=== PATIENT | female | born 1960 | race Caucasian/White ===

== ENCOUNTER 2016-08-16 09:00 | Day surgery (SDC) | payer MEDICAID ==
[2016-08-16] MEDS ORDERED: BUPIVACAINE 0.25% 10 ML SDV ONE (09:39)
[2016-08-16] MEDS ORDERED: fentaNYL 100 MCG/2 ML INJ ONE (09:39)
[2016-08-16] MEDS ORDERED: TRIAMCINOLONE ACETONIDE 40 MG/ML VIAL ONE (09:39)
[2016-08-16] MEDS ORDERED: IOPAMIDOL (ISOVUE-M 200) 20 ML VIAL IV ONE (09:39)
[2016-08-16] MEDS ORDERED: DEXAMETHASONE 10 MG/ML VIAL ONE (09:39)
[2016-08-16] MEDS ORDERED: NA BICARBONATE 50 MEQ/50 ML VIAL ONE (09:39)
[2016-08-16] MEDS ORDERED: MIDAZOLAM 2 MG/2 ML VIAL ONE ×2 (09:39)
[2016-08-16] MEDS ORDERED: LIDOCAINE 1% 30 ML SDV ONE (09:40)
--- NOTE | 2016-08-16 14:42 | DX ---
Fluoroscopy for interlaminar injection cervicothoracic junction History: Fluoroscopy requested for interlaminar injection. Findings: Fluoroscopy time: 0.5 minutes, Estimated dose: 8.95 mGy Two digital images were saved demonstrate needle directed toward the interlaminar space at C7-T1 with contrast tracking in the epidural space. Impression: Fluoroscopy provided for interlaminar injection.
--- NOTE | 2016-08-21 17:19 | GPN ---
[f rep st] PROCEDURE NOTE DATE OF PROCEDURE: 08/16/2016 HISTORY OF PRESENT ILLNESS: The patient presents for followup and possible repeat cervical epidural steroid injection. Her last such injection done 01/26/2016, provided excellent for 3 months, with so me relief persisting to this date. She is not taking any blood thinners or antibiotics, and denies a llergies to shellfish, latex, contrast dye, and iodine. She denies . PROCEDURE: C7-T1 interlaminar epidural steroid injection. DIAGNOSIS: Cervical radiculopathy. SITE: Upper back. PROVIDER: Charlotte Valdivia MD. ANESTHESIA: Local with Versed 4 mg and fentanyl 50 mcg IV. COMPLICATIONS: None. ESTIMATED BLOOD LOSS: Minimal. PREPROCEDURE CONSENT: The preprocedure consent was obtained after the risks, benefits, and alternati ves of the procedure were explained to the patient. The risks include, but are not limited to, nerve injury, spinal cord injury, paralysis, muscle injury, infection, bleeding, increased pain, , an d any other unforeseen consequences. The patient agreed and signed the consent for the procedure. PROCEDURE VERIFICATION AND TIMEOUT: Verbal verification of patient site and procedure was done. All present were in agreement. Please see nursing notes for time of timeout. DESCRIPTION OF PROCEDURE: The patient was placed in a prone position. Standard monitors were put in place. Under fluoroscopic guidance, the C7-T1 interspace was identified. The skin overlying the ta rget area was prepped and draped in a sterile fashion with ChloraPrep and a fenestrated drape. Then, 2 mL of 1% lidocaine was injected subcutaneously over the target location. After local adequate erika lgesia was obtained, an 18-gauge 3-1/2-inch Tuohy needle was advanced by a loss of resistance techniq ue into the epidural space. The needle position was confirmed to be correct with biplanar fluoroscop y. After a negative aspiration for blood and cerebrospinal fluid, 0.5 mL of nonionic contrast dye wa s injected. Good flow of dye was noted in the epidural space. Then, 6 mL of a solution containing 1 5 mg dexamethasone and preservative-free normal saline was injected in 1 mL increments with negative aspiration in between, and no pain or paresthesia upon injection. The needle was re-styletted, and r emoved. Loss of resistance was obtained at 7 cm depth. The patient tolerated the procedure well, and was monitored for 30 more minutes with no apparent comp lications, and was discharged home in good condition, with a ride. She experienced no side effects f rom sedation, and was instructed not to drive, operate heavy machinery, or make any life altering dec isions today. She was instructed to call our clinic with nonurgent concerns or 911 in an emergency. In particular, she was taught that new weakness or numbness, changes in bowel or bladder control, fe celine and swelling or redness over the injection site are all urgent concerns that would warrant callin g 911 or going to an emergency care facility. She verbalized understanding, and was discharged home in good condition with post procedure instructions and a ride. ASSESSMENT: C7-T1 interlaminar epidural steroid injection done today without complications. The pat ient will return for followup, and we will consider repeating the injection in no less than 3 months' time. /[id number]/MODL
== END 2016-08-16 11:08 | disposition home or self-care (01) ==
LOC: FSGY 09:00
PROVIDERS: ATTEND Anesthesiology
PROC: 3E0S3BZ Introduction of Anesthetic Agent into Epidural Space, Percutaneous Approach (ICD-10-PCS; 2016-08-16)
PROC: 3E0S33Z Introduction of Anti-inflammatory into Epidural Space, Percutaneous Approach (ICD-10-PCS; principal; 2016-08-16 10:00)
DX: M54.12 Radiculopathy, cervical region (principal); M54.2 Cervicalgia; M54.9 Dorsalgia, unspecified; G89.29 Other chronic pain; M25.561 Pain in right knee; M25.562 Pain in left knee; R51 Headache; M19.90 Unspecified osteoarthritis, unspecified site; M25.50 Pain in unspecified joint; F41.9 Anxiety disorder, unspecified; Z87.891 Personal history of nicotine dependence
CPT/HCPCS: J2250; J3010; J3301; Q9966

== ENCOUNTER → 2017-06-04 | Outpatient (CLI) | payer MEDICAID | LOC: FIMAGING 13:51 | PROVIDERS: ATTEND Registered Nurse | DX: M47.22 Other spondylosis with radiculopathy, cervical region (principal); M50.10 Cervical disc disorder with radiculopathy, unspecified cervical region ==

== ENCOUNTER → 2017-07-31 | Outpatient (CLI) | payer MEDICAID | LOC: FIMAGING 16:31 | PROVIDERS: ATTEND Neurological Surgery | DX: M50.322 Other cervical disc degeneration at C5-C6 level (principal); M50.323 Other cervical disc degeneration at C6-C7 level; G56.01 Carpal tunnel syndrome, right upper limb; G56.02 Carpal tunnel syndrome, left upper limb ==

== ENCOUNTER → 2018-02-22 | Outpatient (CLI) | payer MEDICAID, OTHER | LOC: FIMAGING 16:02 | PROVIDERS: ATTEND Clinical Nurse Specialist | DX: M51.27 Other intervertebral disc displacement, lumbosacral region (principal); M51.26 Other intervertebral disc displacement, lumbar region; M48.07 Spinal stenosis, lumbosacral region; G54.4 Lumbosacral root disorders, not elsewhere classified ==

== ENCOUNTER 2018-03-11 13:07 | Day surgery (SDC) | payer OTHER ==
[2018-03-11] MEDS ORDERED: MIDAZOLAM 2 MG/2 ML VIAL IVP PRN (13:14)
[2018-03-11] MEDS ORDERED: NALOXONE HCL 0.4 MG/ML INJ IVP PRN (13:14)
[2018-03-11] MEDS ORDERED: fentaNYL 100 MCG/2 ML INJ IVP PRN (13:14)
[2018-03-11] MEDS ORDERED: FLUMAZENIL 0.5 MG/5 ML MDV IVP PRN (13:14)
[2018-03-11] MEDS ORDERED: NS 1,000 ML IV SCH (13:15)
[2018-03-11] MEDS ORDERED: MIDAZOLAM 2 MG/2 ML VIAL ONE (13:17)
[2018-03-11] MEDS ORDERED: NALOXONE HCL 0.4 MG/ML INJ ONE (13:17)
[2018-03-11] MEDS ORDERED: FLUMAZENIL 0.5 MG/5 ML MDV IVP ONE (13:17)
[2018-03-11] MEDS ORDERED: fentaNYL 100 MCG/2 ML INJ ONE (13:17)
[2018-03-11] MEDS ORDERED: TRIAMCINOLONE ACETONIDE 200 MG/5 ML MDV IM ONE (14:46)
[2018-03-11] MEDS ORDERED: IOPAMIDOL (ISOVUE-M 300) 15 ML VIAL ONE (14:46)
--- NOTE | 2018-03-11 14:48 | PDGENHP ---
History & Physical Chief Complaint: LBP History of Present Illness: PAIN GOES FROM LOWER BACK TO RT LEG, SOMETIMES DOWN FOOT. Pertinent Past, Social, Family History: s/p cervical anand, rt total knee replacement, gastric bypass, cholecystectomy, bilateral carpal tunnel, c/s, tonsilecomy. Relevant Physical Exam: R>L buttock and thigh pain. Cardiorespiratory Assessment: rrr, cta
--- NOTE | 2018-03-11 14:49 | PDPROPOC ---
Sedation Plan of Care Sedation Plan of Care: vital signs stable, mental status noted, patient educated of risks, benefits, alternatives, patient can tolerate sedation ASA Classification: ASA 2 Planned drugs: fentanyl, midazolam Mallampati Score: Class 2 Mallampati Reference Image: Patient passed 3-3-2 rule?: Yes
[2018-03-11 17:02] VITALS: BP 108/73
--- NOTE | 2018-03-11 17:12 | PDRADPN ---
Radiology Procedure Note Date of Procedure: 03/11/18 Radiologist: Julisa Wray Anesthesia: IV Sedation Pre-op Diagnosis: back pain Post-op Diagnosis: same Indication: severe pain Procedure: L5-S1 anand Inf/Abcess present in the surg proc area at time of surgery?: No
[2018-03-11] MEDS ORDERED: ONDANSETRON 4 MG/2 ML VIAL IVP PRN (17:13)
== END 2018-03-11 16:47 | disposition home or self-care (01) ==
LOC: FIMAGING 13:07
PROVIDERS: ATTEND Clinical Nurse Specialist
PROC: 3E0S3BZ Introduction of Anesthetic Agent into Epidural Space, Percutaneous Approach (ICD-10-PCS; principal; 2018-03-11 15:21)
PROC: 3E0S33Z Introduction of Anti-inflammatory into Epidural Space, Percutaneous Approach (ICD-10-PCS; principal; 2018-03-11 15:21)
DX: M51.26 Other intervertebral disc displacement, lumbar region (principal)
CPT/HCPCS: J2250; J2310; J3010; J3301; Q9967

== ENCOUNTER 2018-04-02 | Observation (INO) | payer OTHER | END 2018-04-03 14:56 | disposition home or self-care (01) | PROVIDERS: ADMIT Internal Medicine | PROC: 0GB33ZX Excision of Right Adrenal Gland, Percutaneous Approach, Diagnostic (ICD-10-PCS; principal; 2018-04-02) | PROC: B41B1ZZ Fluoroscopy of Other Intra-Abdominal Arteries using Low Osmolar Contrast (ICD-10-PCS; 2018-04-02) | PROC: 04L03DZ Occlusion of Abdominal Aorta with Intraluminal Device, Percutaneous Approach (ICD-10-PCS; 2018-04-02) | PROC: B4161ZZ Fluoroscopy of Right Renal Artery using Low Osmolar Contrast (ICD-10-PCS; 2018-04-02) | PROC: 04L93DZ Occlusion of Right Renal Artery with Intraluminal Device, Percutaneous Approach (ICD-10-PCS; 2018-04-02) | DX: E27.9 Disorder of adrenal gland, unspecified (principal); E89.810 Postprocedural hemorrhage of an endocrine system organ or structure following an endocrine system procedure; K66.1 Hemoperitoneum | CPT/HCPCS: 36245; 36246; 36251; 37244; 49180; 71045; 74175; 77012; 99152; 99153; C1760; C1769; G0378; G0379; J1170; J2250; J2270; J2405; J3010; Q9967; J2310 ==

== ENCOUNTER → 2018-05-05 | Outpatient (CLI) | payer OTHER | LOC: FIMAGING 08:55 | PROVIDERS: ATTEND Nurse Practitioner Family | DX: S72.435A Nondisplaced fracture of medial condyle of left femur, initial encounter for closed fracture (principal); M25.462 Effusion, left knee; M22.42 Chondromalacia patellae, left knee ==

== ENCOUNTER → 2018-05-24 | Outpatient (CLI) | payer OTHER | LOC: FIMAGING 14:54 | PROVIDERS: ATTEND Physician Assistant | DX: M79.662 Pain in left lower leg (principal) ==

== ENCOUNTER 2018-09-22 11:04 | Emergency (ER) | payer OTHER ==
--- NOTE | 2018-09-22 12:03 | EDPHY ---
H & P Time Seen by Provider: 09/22/18 12:02 HPI/ROS: CHIEF COMPLAINT: Neck and left wrist pain HISTORY OF PRESENT ILLNESS: The patient slipped on ice as her trailer 2 days ago on September 20 and fell hitting her face on a stump. She presents with continued pain in the right side of her neck and her left wrist. Worse with movement or palpation, not associated with weakness or numbness in extremities. Moderate, does have chronic pain and has a pain management plan through her provider. Denies double vision or visual symptoms. Denies chest or abdominal pain. Denies headache or vomiting. REVIEW OF SYSTEMS: Eye: No double vision ENT: no sore throat Cardiac: no chest pain or syncope Pulmonary: no cough or SOB Abdomen: no vomiting, diarrhea, abdominal pain Musculoskeletal: HPI Skin: Bruising around the left eye Neuro: no headache Constitutional: no fever : No hematuria A comprehensive 10 point review of systems is otherwise negative aside from elements mentioned in the history of present illness. PAST MEDICAL HISTORY: Hypertension and sleep apnea, diabetes, depression, peripheral lymphedema. Chronic pain. Social history: Here with her daughter. General Appearance: Alert and conversant, cooperative. Eyes: No scleral icterus. Pupils equal reactive extraocular motion intact no hyphema. ENT, Mouth: Normal mucous membranes. No hemotympanum. No bruising around the eyes or behind the ears. Respiratory: Normal respiratory effort, breath sounds equal, lungs are clear to auscultation. Cardiovascular: Regular rate and rhythm. Gastrointestinal: Abdomen is soft and non tender. Neurological: Alert, face symmetric, normal motor and sensory in extremities. Skin: Bruising around the left eye. Musculoskeletal: Midline cervical spine pain on palpation but no thoracic or lumbar spine tenderness. No extremity point tenderness except for left distal radius. Psychiatric: Not agitated. Emergency Department course/MDM: Does not have red flags to suggest high risk for intracranial bleed subdural or epidural. Has bruising around her left orbit but no headache, really only left wrist and neck pain at this time. Cannot clear by nexus, CT cervical spine discussed and consented. Procedure: Splint placement. A left forearm Ortho Glass sugar-tong splint was applied. After application of the splint I returned and re-examined the patient. The splint was adequately immobilizing the joint and distal to the splint the patient's circulation and sensation was intact. 1308: CT cervical spine negative per Dr. Dsouza. Smoking Status: Former smoker Constitutional: Initial Vital Signs Temperature (C) 36.8 C 09/22/18 11:11 Heart Rate 71 09/22/18 11:11 Respiratory Rate 16 09/22/18 11:11 Blood Pressure 185/99 H 09/22/18 11:11 O2 Sat (%) 96 09/22/18 11:11 O2 Delivery Mode Room Air Allergies/Adverse Reactions: No Known Allergies Allergy (Verified 09/22/18 11:10) Home Medications: Medication Instructions Recorded Amphet Asp and D/Amphet [Adderall 10 mg PO BID@09,13 04/02/18 20 mg (*)] Diclofenac Sodium 1% [Voltaren Gel 1 jayy TP QID PRN 04/02/18 (*)] FLUoxetine [Prozac 20 MG (*)] 60 mg PO DAILY 04/02/18 Lisinopril [Zestril 20 mg (*)] 20 mg PO DAILY 04/02/18 Omeprazole 20 mg PO DAILY 04/02/18 buPROPion XL [Wellbutrin 150mg XL] 150 mg PO DAILY 04/02/18 metFORMIN HCL [Glucophage 500 mg 500 mg PO DAILY 04/02/18 (*)] oxyCODONE IR [Oxycodone Ir (*)] 20 mg PO QID 04/02/18 Medical Decision Making - Diagnostics Imaging Results: Imaging Impressions Forearm X-Ray 09/22/18 11:14 Impression: Subtle transverse fracture in the distal radial metaphysis, seen best on the wrist images obtained today. Wrist X-Ray 09/22/18 11:14 Impression: Subtle transverse fracture in the distal radial metaphysis. Imaging: Discussed imaging studies w/ call center agent Radiologist Departure - Departure Disposition: Home, Routine, Self-Care Clinical Impression: Closed fracture of left distal radius Qualifiers: Encounter type: initial encounter Fracture morphology: unspecified fracture morphology Qualified Code(s): S52.502A - Unspecified fracture of the lower end of left radius, initial encounter for closed fracture Facial hematoma Qualifiers: Encounter type: initial encounter Qualified Code(s): S00.83XA - Contusion of other part of head, initial encounter Cervical strain Qualifiers: Encounter type: initial encounter Qualified Code(s): S16.1XXA - Strain of muscle, fascia and tendon at neck level, initial encounter Condition: Good Instructions: Wrist Fracture in Children (ED), Cervical Strain (ED) Referrals: Yasmin Trevino NP [Primary Care Provider] - As per Instructions Rachael Marshall MD [Medical Doctor] - 2-3 days, call for appt. (Follow-up early this week with orthopedist for definitive treatment and probable casting.)
[2018-09-22 13:20] VITALS: BP 136/57
== END 2018-09-22 13:17 | disposition home or self-care (01) ==
PROC: 2W3DX1Z Immobilization of Left Lower Arm using Splint (ICD-10-PCS; principal; 2018-09-22)
DX: S52.502A Unspecified fracture of the lower end of left radius, initial encounter for closed fracture (principal); S00.83XA Contusion of other part of head, initial encounter; S16.1XXA Strain of muscle, fascia and tendon at neck level, initial encounter; W01.198A Fall on same level from slipping, tripping and stumbling with subsequent striking against other object, initial encounter; Y92.9 Unspecified place or not applicable; Y93.9 Activity, unspecified; Y99.9 Unspecified external cause status
CPT/HCPCS: 29125; 72125; 73090; 73110; 99283; A4565

== ENCOUNTER 2018-10-18 10:10 | Day surgery (SDC) | payer OTHER ==
[2018-10-18] MEDS ORDERED: TRIAMCINOLONE ACETONIDE 200 MG/5 ML MDV IM ONE (10:19)
[2018-10-18] MEDS ORDERED: IOPAMIDOL (ISOVUE-M 300) 15 ML VIAL ONE (10:20)
[2018-10-18] MEDS ORDERED: FLUMAZENIL 0.5 MG/5 ML MDV IVP PRN (11:17)
[2018-10-18] MEDS ORDERED: fentaNYL 100 MCG/2 ML INJ IVP PRN (11:17)
[2018-10-18] MEDS ORDERED: NALOXONE HCL 0.4 MG/ML INJ IVP PRN (11:17)
[2018-10-18] MEDS ORDERED: MIDAZOLAM 2 MG/2 ML VIAL IVP PRN (11:17)
[2018-10-18] MEDS ORDERED: NS 1,000 ML IV SCH (11:30)
[2018-10-18] MEDS ORDERED: fentaNYL 100 MCG/2 ML INJ ONE (11:48)
[2018-10-18] MEDS ORDERED: MIDAZOLAM 2 MG/2 ML VIAL ONE (11:48)
[2018-10-18] MEDS ORDERED: NALOXONE HCL 0.4 MG/ML INJ ONE (11:49)
[2018-10-18] MEDS ORDERED: FLUMAZENIL 0.5 MG/5 ML MDV IVP ONE (11:49)
[2018-10-18] MEDS ORDERED: ONDANSETRON 4 MG/2 ML VIAL IVP PRN (12:32)
--- NOTE | 2018-10-18 12:32 | PDRADPRE ---
Radiology History & Physical Indication for procedure: back pain Home medications: Amphet Asp and D/Amphet [Adderall 20 mg (*)] 10 mg PO BID@,04/02/18 [Last Taken 10/17/18] FLUoxetine [Prozac 20 MG (*)] 60 mg PO DAILY 04/02/18 [Last Taken 10/18/18 08:00 ] Lisinopril [Zestril 20 mg (*)] 20 mg PO DAILY 04/02/18 [Last Taken 10/18/18 08: 00] Omeprazole 20 mg PO DAILY 04/02/18 [Last Taken 10/17/18] buPROPion XL [Wellbutrin 150mg XL] 150 mg PO DAILY 04/02/18 [Last Taken 10/17/18 ] metFORMIN HCL [Glucophage 500 mg (*)] 500 mg PO DAILY 04/02/18 [Last Taken 10/17] oxyCODONE IR [Oxycodone Ir (*)] 20 mg PO QID 04/02/18 [Last Taken 10/18/18 08:00 ] Ranitidine HCl 1 tab PO DAILY 10/15/18 [Last Taken 10/17/18] Allergies/Adverse Reactions: No Known Allergies Allergy (Verified 10/15/18 09:30) Mental status: A&Ox3 Heart exam: regular rate and rhythm Lungs exam: clear to auscultation Mallampati Score: Class 2
--- NOTE | 2018-10-18 12:33 | PDRADPN ---
Radiology Procedure Note Date of Procedure: 10/18/18 Radiologist: Tariq Hernandez Anesthesia: IV Sedation Pre-op Diagnosis: LBP Post-op Diagnosis: LBP Indication: RLE radiculopathy Procedure: Lumbar CINDI Finding(s): L5-S1 CINDI Inf/Abcess present in the surg proc area at time of surgery?: No
[2018-10-18 14:20] VITALS: BP 109/68
== END 2018-10-18 13:55 | disposition home or self-care (01) ==
LOC: FIMAGING 10:10
PROVIDERS: ATTEND Registered Nurse
DX: M54.17 Radiculopathy, lumbosacral region (principal); G89.4 Chronic pain syndrome
CPT/HCPCS: J2250; J2310; J3010; J3301; Q9967